=== PATIENT | female | born 1960 | race Hispanic/Latino ===

== ENCOUNTER 2022-08-10 14:11 | Emergency (ER) | payer OTHER, SELFPAY ==
[2022-08-10] MEDS ORDERED: LIDOCAINE 1% MPF 5 ML VIAL ONE (15:03)
[2022-08-10] MEDS ORDERED: TETANUS & DIPHTHERIA TOX,ADULT 0.5 ML VIAL ONE (15:09)
--- NOTE | 2022-08-10 15:51 | RAD REPORT ---
EXAM DESCRIPTION: RAD - Hand Right 3 View - 08/10/2022 3:34 pm CLINICAL HISTORY: Right hand pain status post injury FINDINGS: Comminuted oblique fracture mid aspect of the fourth distal phalanx with mild to moderate displacement of the fracture fragments No dislocation
[2022-08-10] MEDS ORDERED: cloNIDine HCL 0.1 MG TAB ONE (18:07)
--- NOTE | 2022-08-10 18:09 | EDPHYS ---
Physician Documentation [facility] Name: Gloria Fitzgerald Age: 62 yrs Sex: Female : 1960 Arrival Date: 08/10/2022 Time: 14:14 Bed 10 Private MD: ED Physician Jonas Clifford HPI: 08/10 16:41 This 62 yrs old Female presents to ER via Ambulatory with complaints of Crush kb Injury - finger. 16:41 The patient or guardian reports injury, a laceration. The complaints affect the palmar kb aspect of distal phalanx of right ring finger. Context: The problem was sustained outdoors, resulted from a crush injury, by a car door. Onset: The symptoms/episode began/occurred just prior to arrival. Modifying factors: The symptoms are alleviated by nothing, the symptoms are aggravated by movement. Associated signs and symptoms: The patient has no apparent associated signs or symptoms. Severity of symptoms: At their worst the symptoms were mild, in the emergency department the symptoms are unchanged. The patient has not experienced similar symptoms in the past. The patient has not recently seen a physician. Pt accidentally slammed car door on right ring finger causing laceration. Historical: - Allergies: 14:57 No Known Allergies; jl7 - Home Meds: 14:57 losartan 100 mg oral tab [Active]; jl7 - PMHx: 14:57 Hypertensive disorder; Diabetes mellitus; jl7 - Immunization history:: Client reports receiving the 2nd dose of the Covid vaccine. - Social history:: Smoking status: Patient denies any tobacco usage or history of. ROS: 16:40 Constitutional: Negative for fever, chills, and weight loss. kb 16:40 Skin: Positive for laceration(s), of the palmar aspect of distal phalanx of right ring finger. 16:40 All other systems are negative. Exam: 16:41 Constitutional: This is a well developed, well nourished patient who is awake, alert, kb and in no acute distress. Head/Face: Normocephalic, atraumatic. ENT: Moist Mucous membranes Cardiovascular: Regular rate and rhythm with a normal S1 and S2. No gallops, murmurs, or rubs. No pulse deficits. Respiratory: Respirations even and unlabored. No increased work of breathing. Talking in full sentences MS/ Extremity: Pulses equal, no cyanosis. Neurovascular intact. Full, normal range of motion. Neuro: Awake and alert, GCS 15, oriented to person, place, time, and situation. Moves all extremities. Normal gait. Psych: Awake, alert, with orientation to person, place and time. Behavior, mood, and affect are within normal limits. 16:41 Skin: injury, laceration(s), the wound is approximately 1.5 cm(s), of the palmar aspect of distal phalanx of right ring finger, that can be described as clean, no foreign body, irregular, without bleeding. Vital Signs: 14:53 BP 259 / 110; Pulse 94; Resp 17; Temp 99; Pulse Ox 100% on R/A; Weight 74.84 kg; Height jl7 5 ft. 2 in. (157.48 cm); Pain 2/10; 16:29 BP 253 / 112; Pulse 96; Resp 18; Pulse Ox 98% on R/A; ko1 17:30 BP 214 / 107; ko1 18:31 BP 202 / 108; Pulse 94; Pulse Ox 99% on R/A; ko1 14:53 Body Mass Index 30.18 (74.84 kg, 157.48 cm) jl7 Laceration: 18:06 Wound Repair of 1.5cm ( 0.6in ) subcutaneous laceration to palmar aspect of distal kb phalanx of right ring finger. Irregularly shaped.. Distal neuro/vascular/tendon intact. Anesthesia: Wound infiltrated with 2 mls of 1% lidocaine. Wound prep: Extensive cleansing with hibiclenz by me, Wound irrigation with saline by me. Skin closed with 4 5-0 Prolene using 2 cruciate knots, 2 simple sutures. Patient tolerated well. MDM: 14:54 Patient medically screened. kb 16:40 Data reviewed: vital signs, nurses notes. Data interpreted: Pulse oximetry: on room air kb is 98 %. Interpretation: normal. ED course: Awaiting callback from Dr Cazares for consult. 18:05 Physician consultation: Sj Cazares MD was contacted at 16:56, regarding consult, kb patient's condition, and will see patient in office, tomorrow, Wants laceration repaired and pt to follow up in [facility] tomorrow. 18:07 Counseling: I had a detailed discussion with the patient and/or guardian regarding: the kb historical points, exam findings, and any diagnostic results supporting the discharge/admit diagnosis, radiology results, the need for outpatient follow up, a hand specialist, to return to the emergency department if symptoms worsen or persist or if there are any questions or concerns that arise at home. 18:07 ED course: Pt asymptomatic of BP. States "It is always this high and I'm fine." Pt kb educated to keep bp log and follow up with PCP for HTN management. 08/10 14:56 Order name: Hand Right 3 View XRAY; Complete Time: 16:04 kb 08/10 14:54 Order name: Dressing - Wound; Complete Time: 17:58 kb 08/10 14:54 Order name: Gloves, Sterile; Complete Time: 15:06 kb 08/10 14:54 Order name: Prolene, Sutures; Complete Time: 15:06 kb 08/10 14:54 Order name: Setup Suture Tray; Complete Time: 15:06 kb 08/10 18:12 Order name: Finger Splint; Complete Time: 18:18 kb Administered Medications: 15:14 Drug: Tetanus-Diphtheria Toxoid Adult 0.5 ml {Admissions Nurse: [employer]. Exp: ko1 02/07/2024. Lot #: [id number]. } Route: IM; Site: left deltoid; 17:58 Drug: Lidocaine (1 %) 1 vials Volume: 5 ml; Route: Infiltration; ko1 18:04 Drug: cloNIDine 0.1 mg Route: PO; ko1 18:19 Drug: KeFLEX (cephalexin) 500 mg Route: PO; ko1 Disposition: 08/11 10:50 Co-signature as Attending Physician, Jonas Clifford MD I agree with the assessment and kdr plan of care. Disposition Summary: 08/10/22 18:09 Discharge Ordered Location: Home kb Condition: Stable kb Diagnosis - Displaced fracture of distal phalanx of right ring finger - open(08/10/22 18:09) kb - Laceration without foreign body of right ring finger without damage to nail kb Followup: kb - With: Emergency Department - When: As needed - Reason: Worsening of condition Followup: kb - With: Private Physician - When: 2 - 3 days - Reason: Recheck today's complaints, Continuance of care, Re-evaluation by your physician Discharge Instructions: - Discharge Summary Sheet kb - Laceration Care, Adult, [id number] kb Forms: - Medication Reconciliation Form kb - Thank You Letter kb - Antibiotic Education kb - Prescription Opioid Use kb Prescriptions: - Cephalexin 500 mg Oral Capsule - take 1 capsule by ORAL route every 8 hours for 10 days; 30 capsule; Refills: 0, kb Product Selection Permitted Signatures: Dispatcher [employer] EDMS Zena Lomeli, HARSHIL ORLANDO-Jonas Bond MD MD kdr Leal, Jahala, RN RN jl7 Crsytal Xiao RN RN ko1 Corrections: (The following items were deleted from the chart) 08/10 18:09 18:09 Displaced fracture of distal phalanx of right ring finger kb kb
--- NOTE | 2022-08-10 18:09 | ER ---
Nurse's Notes [facility] Name: Gloria Fitzgerald Age: 62 yrs Sex: Female : 1960 Arrival Date: 08/10/2022 Time: 14:14 Bed 10 Private MD: Diagnosis: Displaced fracture of distal phalanx of right ring finger-open;Laceration without foreign body of right ring finger without damage to nail Presentation: 08/10 14:53 Chief complaint: Patient states: Slammed right ring finger in door, laceration noted. jl7 Coronavirus screen: At this time, the client does not indicate any symptoms associated with coronavirus-19. Ebola Screen: No symptoms or risks identified at this time. Initial Sepsis Screen: Does the patient meet any 2 criteria? No. Patient's initial sepsis screen is negative. Does the patient have a suspected source of infection? No. Patient's initial sepsis screen is negative. Risk Assessment: Do you want to hurt yourself or someone else? Patient reports no desire to harm self or others. Onset of symptoms was August 10, 2022. 14:53 Method Of Arrival: Ambulatory [facility] 14:53 Acuity: MARIA C 3 jl7 Triage Assessment: 14:57 General: Appears in no apparent distress. uncomfortable, Behavior is calm, cooperative, jl7 appropriate for age. Pain: Complains of pain in left hand. Historical: - Allergies: 14:57 No Known Allergies; jl7 - Home Meds: 14:57 losartan 100 mg oral tab [Active]; jl7 - PMHx: 14:57 Hypertensive disorder; Diabetes mellitus; jl7 - Immunization history:: Client reports receiving the 2nd dose of the Covid vaccine. - Social history:: Smoking status: Patient denies any tobacco usage or history of. Screenin:13 Abuse screen: Denies threats or abuse. Denies injuries from another. Nutritional ko1 screening: No deficits noted. Tuberculosis screening: No symptoms or risk factors identified. Fall Risk None identified. Assessment: 15:11 General: Appears in no apparent distress. comfortable, Behavior is calm, cooperative, ko1 appropriate for age. Pain: Complains of pain in right hand. Neuro: No deficits noted. Cardiovascular: No deficits noted. Respiratory: No deficits noted. GI: No deficits noted. : No deficits noted. EENT: No deficits noted. Derm: No deficits noted. Musculoskeletal: No deficits noted. 15:13 Injury Description: Crush injury sustained to right hand Laceration sustained to right ko1 hand is was sustained 30-60 minutes ago. a small amount of bleeding noted at this time. Vital Signs: 14:53 BP 259 / 110; Pulse 94; Resp 17; Temp 99; Pulse Ox 100% on R/A; Weight 74.84 kg; Height jl7 5 ft. 2 in. (157.48 cm); Pain 2/10; 16:29 BP 253 / 112; Pulse 96; Resp 18; Pulse Ox 98% on R/A; ko1 17:30 BP 214 / 107; ko1 18:31 BP 202 / 108; Pulse 94; Pulse Ox 99% on R/A; ko1 14:53 Body Mass Index 30.18 (74.84 kg, 157.48 cm) jl7 ED Course: 14:14 Patient arrived in ED. as 14:54 Zena Lomeli FNP-C [facility]. kb 14:54 Jonas Clifford MD is Attending Physician. kb 14:56 Triage completed. jl7 14:57 Arm band placed on right wrist. jl7 14:59 Crystal Xiao RN is Primary Nurse. ko1 15:13 Patient has correct armband on for positive identification. Bed in low position. Call ko1 light in reach. Side rails up X 1. NIBP on. 15:13 Patient did not have IV access during this emergency room visit. ko1 15:36 Hand Right 3 View XRAY In Process Unspecified. EDMS 17:30 Assist provider with laceration repair on palmar aspect of distal phalanx of right ring ko1 finger using sutures. Set up tray. Performed by Zena CHUA Dressed with Kerlix, Patient tolerated well. 17:30 splint to right ring finger. ko1 Administered Medications: 15:14 Drug: Tetanus-Diphtheria Toxoid Adult 0.5 ml {Shake Out Worker: [employer]. Exp: ko1 02/07/2024. Lot #: [id number]. } Route: IM; Site: left deltoid; 17:58 Drug: Lidocaine (1 %) 1 vials Volume: 5 ml; Route: Infiltration; ko1 18:04 Drug: cloNIDine 0.1 mg Route: PO; ko1 18:19 Drug: KeFLEX (cephalexin) 500 mg Route: PO; ko1 Medication: 15:13 Vaccine Information Statement (VIS) provided today. Questions and/or concerns ko1 addressed. VIS edition date: 2021. Outcome: 17:30 Discharged to home ambulatory. ko1 17:30 Condition: stable 17:30 Discharge instructions given to patient, Instructed on discharge instructions, follow up and referral plans. medication usage, wound care, Demonstrated understanding of instructions, follow-up care, medications, wound care, Prescriptions given X 1. 18:09 Discharge ordered by . kb 18:32 Patient left the ED. ko1 Signatures: Dispatcher [employer] EDMS Zena Lomeli, EXPERIMENTAL WELDER-C EXPERIMENTAL WELDER-Anna Patton Jahala, RN RN jl7 Crystal Xiao RN RN ko1
[2022-08-10] MEDS ORDERED: CEPHALEXIN 250 MG CAP ONE (18:20)
[2022-08-10 19:52] VITALS: TEMP 99
[2022-08-10 19:55] VITALS: BP 202/108; O2SAT 99
== END 2022-08-10 18:32 | disposition home or self-care (01) ==
LOC: ER 14:11
PROC: 0JQJ0ZZ Repair Right Hand Subcutaneous Tissue and Fascia, Open Approach (ICD-10-PCS; principal; 2022-08-10)
DX: S62.634B Displaced fracture of distal phalanx of right ring finger, initial encounter for open fracture (principal); Z23 Encounter for immunization
CPT/HCPCS: 73130; 90471; 90714; 99284; 12001; J2001

== ENCOUNTER 2023-12-11 14:10 | Observation (INO) | payer OTHER ==
[2023-12-11 15:14] LABS: Absolute Basophils 0.1 K/uL (0-0.5); Absolute Eosinophils 0.3 K/uL (0-0.5); Absolute Lymphocytes (CBC) 1.9 K/uL (0.7-4.9); Absolute Monocytes 0.5 K/uL (0.1-1.3); Absolute Neutrophil 6.2 K/uL (1.8-8.0); Basophils % 1.3 % (0-1.3); Eosinophils % 3.6 % (0-4.4); Hematocrit 33.8 % (36.0-45.0); Hemoglobin 11.3 g/dL (12.0-15.0); Lymphocytes % 20.8 % (15.3-44.8); MCH 29.3 pg (27.0-35.0); MCHC 33.5 g/dL (32.0-36.0); MCV 87.6 fL (80-100); MPV 8.7 fL (7.6-11.3); Monocytes % 5.7 % (3.3-12.3); Neutrophils % 68.6 % (41.7-73.7); Platelets 292 thou/uL (152-406); RBC Red Blood Cell Count 3.85 M/uL (3.86-4.86); Red Cell Distribution Width 14.3 % (12.1-15.2)
[2023-12-11 15:15] LABS: PT Prothrombin Time 12.1 SECONDS (9.5-12.5); Protime INR 1.1
--- NOTE | 2023-12-11 15:22 | RAD REPORT ---
EXAM DESCRIPTION: RAD - Chest Single View - 12/11/2023 3:14 pm CLINICAL HISTORY: Cough;Dyspnea COMPARISON: <Comparisons> FINDINGS: Lines: None. Lungs: Mild prominence of the central pulmonary interstitium. Pleural: Blunted left costophrenic angle. Cardiac: Cardiomegaly. Mediastinum: Within normal limits. Bones: No acute fractures. Other: None IMPRESSION: Question mild pulmonary edema. No consolidative airspace disease. Cardiomegaly.
[2023-12-11 15:31] LABS: ALT/SGPT 64 U/L (13-56); AST/SGOT 31 U/L (15-37); Albumin 2.5 g/dL (3.4-5.0); Albumin/Globulin Ratio 0.6 (1.1-1.8); Alkaline Phosphatase 139 U/L (45-117); Anion Gap 9.6 mEq/L (5.0-15.0); BUN Blood Urea Nitrogen 24 mg/dL (7-18); Bicarbonate 23 mEq/L (21-32); Bilirubin Total 0.2 mg/dL (0.2-1.0); Globulin 4.5 g/dL (2.3-3.5); Glomerular Filtration Rate 40 ml/min (=/>90); Glucose Level 177 mg/dL (74-106); Magnesium 1.8 mg/dL (1.6-2.4); NT PRO-BNP 9995 pg/mL (<125); Potassium 4.6 mEq/L (3.5-5.1); Sodium Level 140 mEq/L (136-145); Troponin High Sensitivity 29.6 pg/mL (<58.9)
[2023-12-11 15:32] LABS: Bilirubin Direct < 0.1 mg/dL (0-0.2); Bilirubin Indirect, Calculated ND mg/dL (0.2-0.8)
[2023-12-11] MEDS ORDERED: ENOXAPARIN 80 MG/0.8 ML SQ ONE (15:46)
[2023-12-11] MEDS ORDERED: NITROGLYCERIN 1 GM PKT TD ONE (15:46)
[2023-12-11] MEDS ORDERED: ASPIRIN 81 MG CHEWABLE TABLET ONE (15:46)
[2023-12-11] MEDS ORDERED: METOPROLOL XL 50 MG TAB PO ONE (15:46)
[2023-12-11] MEDS ORDERED: FUROSEMIDE 40 MG/4 ML VIAL ONE (15:47)
[2023-12-11 16:20] LABS: Specific Gravity 1.012 (1.005-1.030); Sqamous Epithelial <5 /HPF (None Seen); Urine Bacteria <20 /HPF (<20); Urine Bilirubin NEGATIVE (Negative); Urine Blood 1+ (Negative); Urine Clarity Extremely Turbid (Clear); Urine Color Light-Yellow (Yellow); Urine Culture Reflex Order REFLEXED; Urine Glucose 2+ (Negative); Urine Ketones NEGATIVE (Negative); Urine Microscopic Reflex YN ORDER UMIC; Urine Nitrite NEGATIVE (Negative); Urine Protein 3+ (Negative); Urine RBC <5 /HPF (None Seen); Urine Urobilinogen Normal (Normal); Urine WBC 20-50 /HPF (<5); Urine WBC Clump Rare /HPF (None Seen); Urine Yeast (Budding) Trace /HPF (None Seen); Urine pH 6.5 (5.0-7.0)
[2023-12-11] MEDS ORDERED: HYDRALAZINE HCL 10 MG TABLET ONE (16:23)
--- NOTE | 2023-12-11 16:38 | RAD REPORT ---
EXAM DESCRIPTION: US - Renal Ultrasound-Complete - 12/11/2023 4:30 pm CLINICAL HISTORY: PAIN COMPARISON: No comparisons FINDINGS: Both kidneys are normal in size, shape and echotexture. The right kidney measures 12.2 cm. No hydronephrosis, focal mass or perinephric fluid. The left kidney measures 11.5 cm. No hydronephrosis. 8 mm cyst the lower pole of the left kidney. The urinary bladder is incompletely distended without gross abnormality seen. IMPRESSION: No evidence of hydronephrosis. Subcentimeter left lower pole renal cyst.
--- NOTE | 2023-12-11 16:51 | EDPHYS ---
Physician Documentation [facility] Name: Gloria Fitzgerald Age: 63 yrs Sex: Female : 1960 Arrival Date: 12/11/2023 Time: 14:10 Bed 18 Private MD: ED Physician Isaac Hernandez HPI: 12/10 16:40 This 63 yrs old Female presents to ER via Ambulatory with complaints of Leg vielka Swelling, Cough, Shortness Of Breath. 16:40 The patient or guardian reports airway noise, difficulty breathing. Onset: The vielka symptoms/episode began/occurred 60 day(s) ago. Severity of symptoms: At their worst the symptoms were mild, moderate, in the emergency department the symptoms are unchanged. Modifying factors: The symptoms are alleviated by rest the symptoms are aggravated by exertion. Associated signs and symptoms: Pertinent positives: chest pain, with movement. The patient has experienced similar episodes in the past, multiple times. Historical: - Allergies: 14:52 No Known Allergies; nj1 - PMHx: 14:52 diabetes mellitus; Hypertensive disorder; nj1 - Immunization history:: Client reports having NOT received the Covid vaccine. - Infectious Disease History:: Denies. - Social history:: Smoking status: Patient denies any tobacco usage or history of. ROS: 16:42 Constitutional: Negative for fever, chills, and weight loss, Eyes: Negative for injury, vielka pain, redness, and discharge, ENT: Negative for injury, pain, and discharge, Neck: Negative for injury, pain, and swelling, Abdomen/GI: Negative for abdominal pain, nausea, vomiting, diarrhea, and constipation, Back: Negative for injury and pain, : Negative for injury, bleeding, discharge, and swelling, Skin: Negative for injury, rash, and discoloration, Neuro: Negative for headache, weakness, numbness, tingling, and seizure, Psych: Negative for depression, anxiety, suicide ideation, homicidal ideation, and hallucinations, Allergy/Immunology: Negative for hives, rash, and allergies, Endocrine: Negative for neck swelling, polydipsia, polyuria, polyphagia, and marked weight changes, Hematologic/Lymphatic: Negative for swollen nodes, abnormal bleeding, and unusual bruising, 16:42 Cardiovascular: Positive for chest pain, 16:42 Respiratory: Positive for dyspnea on exertion, orthopnea, shortness of breath, 16:42 MS/extremity: Positive for swelling, of the right leg and left leg, Exam: 16:42 Constitutional: This is a well developed, well nourished patient who is awake, alert, vielka and in no acute distress. Head/Face: Normocephalic, atraumatic. Eyes: Pupils equal round and reactive to light, extra-ocular motions intact. Lids and lashes normal. Conjunctiva and sclera are non-icteric and not injected. Cornea within normal limits. Periorbital areas with no swelling, redness, or edema. ENT: Nares patent. No nasal discharge, no septal abnormalities noted. Tympanic membranes are normal and external auditory canals are clear. Oropharynx with no redness, swelling, or masses, exudates, or evidence of obstruction, uvula midline. Mucous membranes moist. Neck: Trachea midline, no thyromegaly or masses palpated, and no cervical lymphadenopathy. Supple, full range of motion without nuchal rigidity, or vertebral point tenderness. No Meningismus. Chest/axilla: Normal chest wall appearance and motion. Nontender with no deformity. No lesions are appreciated. Cardiovascular: Regular rate and rhythm with a normal S1 and S2. No gallops, murmurs, or rubs. Normal PMI, no JVD. No pulse deficits. Abdomen/GI: Soft, non-tender, with normal bowel sounds. No distension or tympany. No guarding or rebound. No evidence of tenderness throughout. Back: No spinal tenderness. No costovertebral tenderness. Full range of motion. Female : Normal external genitalia. Skin: Warm, dry with normal turgor. Normal color with no rashes, no lesions, and no evidence of cellulitis. MS/ Extremity: Pulses equal, no cyanosis. Neurovascular intact. Full, normal range of motion. Neuro: Awake and alert, GCS 15, oriented to person, place, time, and situation. Cranial nerves II-XII grossly intact. Motor strength 5/5 in all extremities. Sensory grossly intact. Cerebellar exam normal. Normal gait. Psych: Awake, alert, with orientation to person, place and time. Behavior, mood, and affect are within normal limits. 16:42 ECG was reviewed by the Attending Physician. Vital Signs: 14:36 BP 244 / 117; Pulse 96; Resp 18; Pulse Ox 98% on R/A; ab3 14:40 BP 249 / 117; Pulse 97; Resp 18; Temp 97.7(TE); Pulse Ox 98% on R/A; Weight 70.76 kg; nj1 Height 5 ft. 2 in. ; Pain 2/10; 14:45 BP 240 / 113; Pulse 81; Resp 18; Pulse Ox 98% on R/A; ab3 15:00 BP 249 / 120; Pulse 80; Resp 18; Pulse Ox 99% on R/A; ab3 15:15 BP 236 / 108; Pulse 89; Resp 17; Pulse Ox 98% on R/A; Pain 0/10; ab3 15:30 BP 232 / 101; Pulse 87; Resp 16; Pulse Ox 97% on R/A; ab3 16:00 BP 238 / 102; Pulse 90; Resp 16; Pulse Ox 99% on R/A; ab3 16:24 BP 216 / 102; Pulse 89; Resp 18; Pulse Ox 98% on R/A; ab3 17:00 BP 200 / 91; Pulse 69; Resp 16; Pulse Ox 99% on R/A; Pain 0/10; ab3 18:00 BP 199 / 97; Pulse 81; Resp 14; Temp 98; Pulse Ox 100% on R/A; ab3 18:00 Pain 0/10; ab3 18:50 BP 197 / 94; Pulse 84; Resp 16; Pulse Ox 99% on R/A; Pain 0/10; ab3 19:42 BP 198 / 95; Pulse 88; Resp 18; Pulse Ox 99% on R/A; Pain 0/10; tm6 14:40 Body Mass Index 28.53 (70.76 kg, 157.48 cm) nj1 14:40 Pain Scale: Adult nj1 15:15 Pain Scale: Adult ab3 17:00 Pain Scale: Adult ab3 18:00 Pain Scale: Adult ab3 18:50 Pain Scale: Adult ab3 19:42 Pain Scale: Adult tm6 14:45 Dr. David vargasftified of BPS ab3 15:15 MD David aware; pending lab results/imaging. ab3 16:24 aware; Hydralazine PO given with this BP ab3 Kathleen Coma Score: 18:00 Eye Response: spontaneous(4). Motor Response: obeys commands(6). Verbal Response: ab3 oriented(5). Total: 15. MDM: 14:41 Patient medically screened. vielka 16:43 Differential diagnosis: abnormal EKG, acute pericarditis, coronary artery disease vielka congestive heart failure Cholelithiasis gastritis, pleurisy, pneumonia, pulmonary embolus, unstable angina. HEART Score: History: Moderately Suspicious (1), ECG: Normal (0), Age: > 45 and < 65 years (1), Risk Factors: > or = 3 Risk factors for atherosclerotic disease (2), [Hypercholesterolemia] [Hypertension] [DM] [+ Family HX] [Obesity] Troponin: < or = 1 x Normal Limit (0). The patient was given aspirin in the Emergency Department. Differential Diagnosis: Obstructed Airway Bronchitis Influenza Upper Respiratory Infection Pharyngitis Otitis Media Allergic Rhinitis Viral Syndrome Pneumonia Tracheal Injury. KAYE Risk Score: 1 - Three or more CAD risk factors, [Family Hx], [HTN], [Elevated Cholesterol], [DM]. Data reviewed: vital signs, nurses notes, lab test result(s), EKG, radiologic studies, plain films, ultrasound. Consideration of Admission/Observation Patient was admitted/placed on observation. Escalation of care including admission/observation considered. I considered the following discharge prescriptions or medication management in the emergency department Medications were administered in the Emergency Department. See MAR. Independent interpretation of the following test(s) in the Emergency Department EKG: See my EKG interpretation above. Test considered but Not performed: Ultrasound no 2 d echo. Historians other than the Patient: Family Member: son well informed. Care significantly affected by the following chronic conditions: Diabetes, Hypertension. Counseling: I had a detailed discussion with the patient and/or guardian regarding the historical points, exam findings, and any diagnostic results supporting the discharge/admit diagnosis, the presence of at least one elevated blood pressure reading (>120/80) during this emergency department visit, radiology results, the need for further work-up and treatment in the hospital. 12/10 14:42 Order name: Basic Metabolic Panel; Complete Time: 15:34 vielka 12/10 14:42 Order name: CBC with Diff; Complete Time: 15:34 [facility] 12/10 14:42 Order name: LFT's; Complete Time: 15:34 [facility] 12/10 14:42 Order name: Magnesium; Complete Time: 15:34 [facility] 12/10 14:42 Order name: NT PRO-BNP; Complete Time: 15:34 [facility] 12/10 14:42 Order name: PT-INR; Complete Time: 15:34 [facility] 12/10 14:42 Order name: Troponin HS; Complete Time: 15:34 [facility] 12/10 14:42 Order name: Urinalysis w/ reflexes; Complete Time: 16:35 [facility] 12/10 16:27 Order name: Urine Culture EDMS 12/10 18:03 Order name: Basic Metabolic Panel EDMS 12/10 18:04 Order name: Basic Metabolic Panel EDMS 12/10 18:04 Order name: CBC with Automated Diff EDMS 12/10 18:04 Order name: CBC with Automated Diff EDMS 12/10 18:04 Order name: Lipid Profile EDMS 12/10 18:04 Order name: Lipid Profile EDMS 12/10 18:04 Order name: PTT, Activated Partial Thromb EDMS 12/10 18:04 Order name: PTT, Activated Partial Thromb EDMS 12/10 18:04 Order name: Troponin High Sensitivity EDMS 12/10 18:04 Order name: Troponin High Sensitivity EDMS 12/10 18:04 Order name: Troponin High Sensitivity EDMS 12/10 18:04 Order name: Troponin High Sensitivity EDMS 12/10 18:04 Order name: Troponin High Sensitivity EDMS 12/10 14:42 Order name: XRAY Chest (1 view); Complete Time: 15:34 [facility] 12/10 15:42 Order name: US Rp Exam Complete [facility] 12/10 18:03 Order name: Echo with Doppler EDMS 12/10 14:42 Order name: EKG; Complete Time: 14:43 [facility] 12/10 14:42 Order name: Cardiac monitoring; Complete Time: 15:10 [facility] 12/10 14:42 Order name: EKG - Nurse/Tech; Complete Time: 15:10 [facility] 12/10 14:42 Order name: IV Saline Lock; Complete Time: 15:10 [facility] 12/10 14:42 Order name: Labs collected and sent; Complete Time: 15:10 [facility] 12/10 14:42 Order name: O2 Per Protocol; Complete Time: 15:10 [facility] 12/10 14:42 Order name: O2 Sat Monitoring; Complete Time: 15:10 [facility] EC:42 Rate is 90 beats/min. Rhythm is regular. QRS [place] is Normal. LA interval is normal. QRS vielka interval is normal. QT interval is normal. No Q waves. T waves are Normal. No ST changes noted. Clinical impression: Normal ECG, NSR w/ Non-specific ST/T Changes, and No evidence of ischemia. Interpreted by me. Reviewed by me. Administered Medications: 15:52 Drug: Nitroglycerin Transdermal Ointment 2 % 1 inches Transdermal once Route: ab3 Transdermal; Site: anterior chest wall; 18:31 Follow up: Response: No adverse reaction; Pain is decreased; Other; Other: no pain; ab3 chest pressure resolved 15:52 Drug: Metoprolol PO 50 mg PO once Route: PO; ab3 18:31 Follow up: Response: No adverse reaction ab3 15:54 Drug: Aspirin PO 162 mg PO once Route: PO; ab3 18:30 Follow up: Response: No adverse reaction; Pain is decreased; Other; no pain; chest ab3 pressure resolved 15:57 Drug: Furosemide IVP 40 mg IVP once; give over 2 minutes Route: IVP; Site: right ab3 antecubital; 16:00 Drug: Enoxaparin Sub-Q 1 mg/kg Sub-Q once Route: Sub-Q; Site: right lower abdomen; ab3 18:28 Follow up: Response: No adverse reaction ab3 16:26 Drug: hydrALAZINE PO 10 mg PO once Route: PO; ab3 18:29 Follow up: Response: No adverse reaction; Blood pressure is lowered; mild; followe up ab3 with 10mg IVP per orders 18:25 Drug: Rocephin IV 1 grams IV at per protocol once; Given slow IV push per pharmacy ab3 instructions Route: IV; Rate: per protocol; Site: right antecubital; 18:34 Follow up: Response: No adverse reaction; IV Status: Completed infusion; IV Intake: [id number] 18:25 Drug: hydrALAZINE IVP 10 mg IVP once Route: IVP; Site: right antecubital; ab3 19:41 Not Given (Patient Refused): morphineor iv 2 mg IVP once over 4 mins tm6 19:42 Not Given (Patient Refused): ondansetron 4 mg IVP once; over 2 minutes tm6 Disposition Summary: 12/11/23 16:50 Hospitalization Ordered Notes: Hospitalization Status: Observation vielka Provider: Mireya Ross cha [facility] vielka Condition: Fair vielka Problem: new vielka Symptoms: have improved vielka Bed/Room Type: Standard vielka Room Assignment: 404(12/11/23 19:13) rv1 Diagnosis - Essential (primary) hypertension vielka - Chest pain, unspecified vielka - Chronic combined systolic (congestive) and diastolic (congestive) heart failure vielka - Type 2 diabetes mellitus with hyperglycemia vielka Forms: - Medication Reconciliation Form vielka - SBAR form vielka - Leadership Thank You Letter vielka Signatures: Dispatcher [employer] EDMS Isaac Hernandez MD MD cha Villegas, Rebecca rv1 Adrienne Noland, RN RN nj1 Rossy Castillo, RN RN ab3 Lisbet Montaño RN tm6 Corrections: (The following items were deleted from the chart) 14:43 14:43 BASIC METABOLIC PANEL+C.LAB.BRZ ordered. EDMS EDMS 14:43 14:43 CBC+H.LAB.BRZ ordered. EDMS EDMS 14:43 14:43 HEPATIC FUNCTION+C.LAB.BRZ ordered. EDMS EDMS 14:43 14:43 MAGNESIUM+C.LAB.BRZ ordered. EDMS EDMS 14:43 14:43 PROBNP+C.LAB.BRZ ordered. EDMS EDMS 14:43 14:43 PROTIME (+INR)+COAG.LAB.BRZ ordered. EDMS EDMS 14:43 14:43 Troponin High Sensitivity+C.LAB.BRZ ordered. EDMS EDMS 14:43 14:43 Urinalysis+U.LAB.BRZ ordered. EDMS EDMS 15:42 15:42 Rp Exam Complete+US.RAD.BRZ ordered. EDMS EDMS 18:16 16:50 vielka rv1 19:12 18:16 202 rv1 rv1 19:13 19:12 rv1 rv1
--- NOTE | 2023-12-11 16:51 | ER ---
Nurse's Notes [facility] Name: Gloria Fitzgerald Age: 63 yrs Sex: Female : 1960 Arrival Date: 12/11/2023 Time: 14:10 Bed 18 Private MD: Diagnosis: Essential (primary) hypertension;Chest pain, unspecified;Chronic combined systolic (congestive) and diastolic (congestive) heart failure;Type 2 diabetes mellitus with hyperglycemia Presentation: 12/10 14:40 Chief complaint: Patient states: Chest pains and shortness of breath on exertion for 2 nj1 months. 14:40 Coronavirus screen: Vaccine status: Patient reports being unvaccinated. Ebola Screen: nj1 Patient denies travel to an Ebola-affected area in the 21 days before illness onset. Initial Sepsis Screen: Does the patient meet any 2 criteria? HR > 90 bpm. No. Patient's initial sepsis screen is negative. Does the patient have a suspected source of infection? No. Patient's initial sepsis screen is negative. Risk Assessment: Do you want to hurt yourself or someone else? Patient reports no desire to harm self or others. Onset of symptoms was October 2023. 14:40 Method Of Arrival: Ambulatory [facility] 14:40 Acuity: MARIA C 3 nj1 Triage Assessment: 18:35 Respiratory: the patient reports symptoms have resolved. ab3 18:36 Pain: Denies pain. ab3 18:36 Respiratory:. Respiratory: No deficits noted. ab3 18:37 Respiratory: Onset: The symptoms/episode began/occurred pt with intermittent symptoms X ab3 2 months. Historical: - Allergies: 14:52 No Known Allergies; nj1 - PMHx: 14:52 diabetes mellitus; Hypertensive disorder; nj1 - Immunization history:: Client reports having NOT received the Covid vaccine. - Infectious Disease History:: Denies. - Social history:: Smoking status: Patient denies any tobacco usage or history of. Screenin:17 [facility] ED Fall Risk Assessment (Adult) History of falling in the last 3 months, ab3 including since admission No falls in past 3 months (0 pts) Confusion or Disorientation No (0 pts) Intoxicated or Sedated No (0 pts) Impaired Gait No (0 pts) Mobility Assist Device Used Yes (1 pt) Altered Elimination No (0 pt) Score/Fall Risk Level 0 - 2 = Low Risk Oriented to surroundings, Maintained a safe environment, Educated pt \\T\\ family on fall prevention, incl call for assistance when getting out of bed, Assessed \\T\\ reinforced patient's understanding of fall precautions, Provided non-skid footwear, Used ambulatory aids as needed (educated on \\T\\ assisted with). 15:17 Abuse screen: Denies threats or abuse. Nutritional screening: No deficits noted. ab3 Tuberculosis screening: No symptoms or risk factors identified. Never had TB. Possible symptoms: None Risk factors: None Intervention for positive screen: . Assessment: 14:50 General: Appears in no apparent distress. Behavior is calm, cooperative, Smells of ab3 Reports. General:. General:. Neuro: No deficits noted. Cardiovascular: Reports Chest pain. Cardiovascular: Reports chest pain, shortness of breath, intermittent in nature X 2 weeks per patient. Currently pt denies pain, but report "chest pressure". Denies Heart tones S1 S2 Capillary refill < 3 seconds is brisk Patient's skin is warm and dry. Pulses are 1+ in right dorsalis pedis artery and left dorsalis pedis artery Rhythm is sinus rhythm Chest pain . Respiratory: Reports shortness of breath on exertion since 2 weeks Airway is patent Respiratory effort is even, unlabored, relaxed, Breath sounds are clear bilaterally. : Reports "some blood" in her urine this morning X1 episode. Denies burning with urination, cramping discharge, inability to void, incontinence, urinary frequency, urgency. Musculoskeletal: Swelling present in right leg and left leg Reports leg swelling X 2 weeks. 15:36 Reassessment: Patient appears in no apparent distress at this time. MD David ab3 discussed admission POC with pt and grandson; State understanding. Grandson "Jcarlos" states he has to go home, but is available by phone at [phone]. 19:45 Reassessment: Patient appears in no apparent distress at this time. Patient and/or tm6 family updated on plan of care and expected duration. Pain level reassessed. Patient is alert, oriented x 3, equal unlabored respirations, skin warm/dry/pink. Vital Signs: 14:36 BP 244 / 117; Pulse 96; Resp 18; Pulse Ox 98% on R/A; ab3 14:40 BP 249 / 117; Pulse 97; Resp 18; Temp 97.7(TE); Pulse Ox 98% on R/A; Weight 70.76 kg; nj1 Height 5 ft. 2 in. ; Pain 2/10; 14:45 BP 240 / 113; Pulse 81; Resp 18; Pulse Ox 98% on R/A; ab3 15:00 BP 249 / 120; Pulse 80; Resp 18; Pulse Ox 99% on R/A; ab3 15:15 BP 236 / 108; Pulse 89; Resp 17; Pulse Ox 98% on R/A; Pain 0/10; ab3 15:30 BP 232 / 101; Pulse 87; Resp 16; Pulse Ox 97% on R/A; ab3 16:00 BP 238 / 102; Pulse 90; Resp 16; Pulse Ox 99% on R/A; ab3 16:24 BP 216 / 102; Pulse 89; Resp 18; Pulse Ox 98% on R/A; ab3 17:00 BP 200 / 91; Pulse 69; Resp 16; Pulse Ox 99% on R/A; Pain 0/10; ab3 18:00 BP 199 / 97; Pulse 81; Resp 14; Temp 98; Pulse Ox 100% on R/A; ab3 18:00 Pain 0/10; ab3 18:50 BP 197 / 94; Pulse 84; Resp 16; Pulse Ox 99% on R/A; Pain 0/10; ab3 19:42 BP 198 / 95; Pulse 88; Resp 18; Pulse Ox 99% on R/A; Pain 0/10; tm6 14:40 Body Mass Index 28.53 (70.76 kg, 157.48 cm) nj1 14:40 Pain Scale: Adult nj1 15:15 Pain Scale: Adult ab3 17:00 Pain Scale: Adult ab3 18:00 Pain Scale: Adult ab3 18:50 Pain Scale: Adult ab3 19:42 Pain Scale: Adult tm6 14:45 Dr. Hernandez noftified of BPS ab3 15:15 MD David aware; pending lab results/imaging. ab3 16:24 aware; Hydralazine PO given with this BP ab3 Vitals: 15:00 Cardiac Rhythm Assessment Regular Sinus rhythm. ab3 18:00 Cardiac Rhythm Assessment Regular Sinus rhythm. ab3 Kathleen Coma Score: 18:00 Eye Response: spontaneous(4). Motor Response: obeys commands(6). Verbal Response: ab3 oriented(5). Total: 15. ED Course: 14:16 Patient arrived in ED. ra3 14:41 Isaac Hernandez MD is Attending Physician. vielka 14:50 Client placed on continuous cardiac and pulse oximetry monitoring. NIBP monitoring ab3 applied. slide machine tender on. Pulse ox on. NIBP on. 14:52 Triage completed. nj1 14:52 Arm band placed on. nj1 14:58 Virginia Bundy, RN is Primary Nurse. ph 15:00 Patient has correct armband on for positive identification. Allergy band placed. Fall ab3 risk band placed. Placed in gown. Bed in low position. Call light in reach. Side rails up X 1. Provided Education on: ER process/ room orientation. 15:12 Missed attempt(s): 22 gauge in left antecubital area. Bleeding controlled, band aid jg11 applied, catheter tip intact. 15:12 Missed attempt(s): 22 gauge in right forearm. Bleeding controlled, band aid applied, jg11 catheter tip intact. 15:13 Initial lab(s) drawn, by me, sent to lab. EKG done, by ED staff. Inserted saline lock: jg11 22 gauge in right antecubital area, using aseptic technique. Blood collected. 15:16 XRAY Chest (1 view) In Process Unspecified. EDMS 15:28 ED physician to see patient. ab3 15:36 No apparent distress. Awaiting lab results, Awaiting radiology results. Awaiting ab3 disposition. 15:51 Urinalysis w/ reflexes Sent. ab3 16:32 US Rp Exam Complete In Process Unspecified. EDMS 16:49 Mireya Ross MD is Hospitalizing Provider. vielka 17:27 No apparent distress. Awaiting bed assignment. ab3 18:36 Patient admitted, IV remains in place. ab3 18:37 No provider procedures requiring assistance completed. ab3 Administered Medications: 15:52 Drug: Nitroglycerin Transdermal Ointment 2 % 1 inches Transdermal once Route: ab3 Transdermal; Site: anterior chest wall; 18:31 Follow up: Response: No adverse reaction; Pain is decreased; Other; Other: no pain; ab3 chest pressure resolved 15:52 Drug: Metoprolol PO 50 mg PO once Route: PO; ab3 18:31 Follow up: Response: No adverse reaction ab3 15:54 Drug: Aspirin PO 162 mg PO once Route: PO; ab3 18:30 Follow up: Response: No adverse reaction; Pain is decreased; Other; no pain; chest ab3 pressure resolved 15:57 Drug: Furosemide IVP 40 mg IVP once; give over 2 minutes Route: IVP; Site: right ab3 antecubital; 16:00 Drug: Enoxaparin Sub-Q 1 mg/kg Sub-Q once Route: Sub-Q; Site: right lower abdomen; ab3 18:28 Follow up: Response: No adverse reaction ab3 16:26 Drug: hydrALAZINE PO 10 mg PO once Route: PO; ab3 18:29 Follow up: Response: No adverse reaction; Blood pressure is lowered; mild; followe up ab3 with 10mg IVP per orders 18:25 Drug: Rocephin IV 1 grams IV at per protocol once; Given slow IV push per pharmacy ab3 instructions Route: IV; Rate: per protocol; Site: right antecubital; 18:34 Follow up: Response: No adverse reaction; IV Status: Completed infusion; IV Intake: [id number] 18:25 Drug: hydrALAZINE IVP 10 mg IVP once Route: IVP; Site: right antecubital; ab3 19:41 Not Given (Patient Refused): morphineor iv 2 mg IVP once over 4 mins tm6 19:42 Not Given (Patient Refused): ondansetron 4 mg IVP once; over 2 minutes tm6 Medication: 18:35 VIS not applicable for this client. ab3 Intake: 18:34 IV: 50ml; Total: 50ml. ab3 Outcome: 16:50 Decision to Hospitalize by Provider. vielka 18:36 Condition: improved ab3 19:50 Admitted to Med/surg accompanied by nurse, via wheelchair, room 404, with chart, tm6 19:50 Instructed on the need for admit, 19:50 Patient left the ED. tm6 Signatures: Dispatcher [employer] EDMS Isaac Hernandez MD MD cha Hall, Patricia, RN Adrienne Fagan ph, RN RN nj1 Lisbet Montaño RN RN tm6 Ludin Harman jg11 Melissa Nova 3 Rossy Castillo RN RN ab3
[2023-12-11] MEDS ORDERED: ALPRAZOLAM 0.25 MG TABLET PO PRN (17:58)
[2023-12-11] MEDS ORDERED: ACETAMINOPHEN 500 MG TAB PO PRN (17:58)
[2023-12-11] MEDS ORDERED: MORPHINE 4 MG/ML SYR IV PRN (17:58)
[2023-12-11] MEDS ORDERED: CEFTRIAXONE 1000 MG/VIAL ONE (18:21)
[2023-12-11] MEDS ORDERED: HYDRALAZINE HCL 20 MG/ML VIAL ONE (18:21)
[2023-12-11] MEDS ORDERED: NA CHLORIDE 0.9% 50 ML ONE (18:22)
[2023-12-11 19:16] LABS: Troponin High Sensitivity 23.2 pg/mL (<58.9)
[2023-12-11] MEDS: METOPROLOL TAR 25 MG TAB PO SCH (20:38)
[2023-12-11] MEDS: TICAGRELOR 90 MG TABLET PO SCH (20:38)
[2023-12-12 02:03] VITALS: O2SAT 99
[2023-12-12 02:40] VITALS: BP 198/95; TEMP 98
--- NOTE | 2023-12-12 06:33 | P.HP ---
Certification for Inpatient Patient admitted to: Observation With expected LOS: <2 Midnights Patient will require the following post-hospital care: None Practitioner: I am a practitioner with admitting privileges, knowledge of patient current condition, hospital course, and medical plan of care. Services: Services provided to patient in accordance with Admission requirements found in Title 42 Section 412.3 of the Code of Federal Regulations Patient History Date of Service: 12/11/23 Reason for admission: Chest pain rule out acute coronary syndrome History of Present Illness: Patient is a 63-year-old female who came into the hospital with chest pain. Patient chest pain was in the sternal region. Patient denies any radiation. Patient came into the hospital for further workup. In the ER patient EKG was unremarkable and troponins were negative. Patient has multiple risk factors. Patient will be observed overnight for chest pain rule out acute coronary syndrome. If troponins are negative and EKG is unremarkable she can follow-up as an outpatient. Patient also with some acute renal insufficiency. Will continue monitoring renal function. Allergies No Known Allergies Allergy (Verified 07/27/23 07:07) Home Medications: Amoxicillin/Potassium Clav [Amox-Clav 875-125 mg Tablet] 1 each PO DAILY 10/07/21 Gabapentin 300 mg PO BID 10/07/21 Pentoxifylline 400 mg PO DAILY 10/07/21 dilTIAZem HCL [Diltiazem ER] 240 mg PO DAILY 10/07/21 - Past Medical/Surgical History Diabetic: Yes -: HTN -: DMII -: CKD III -: section -: Cholecystectomy - Family History Father Family History: Reviewed- Non-Contributory - Social History Smoking Status: Former smoker Alcohol use: No CD- Drugs: No Review of Systems 10-point ROS is otherwise unremarkable Physical Examination - Vital Signs Temperature: 98 F Blood Pressure: 198/95 Pulse: 88 Respirations: 18 Pulse Ox (%): 99 - Physical Exam General: Alert, In no apparent distress, Oriented x3 HEENT: Atraumatic, PERRLA, Mucous membr. moist/pink, EOMI, Sclerae nonicteric Neck: Supple, 2+ carotid pulse no bruit, No LAD, Without JVD or thyroid abn ormality Respiratory: Clear to auscultation bilaterally, Normal air movement Cardiovascular: Regular rate/rhythm, Normal S1 S2, No murmurs Gastrointestinal: Normal bowel sounds, Soft and benign, Non-distended, No tenderness Musculoskeletal: No clubbing, No swelling, No tenderness Integumentary: No rashes Neurological: Normal gait, Normal speech, Normal strength at 5/5 x4 extr, Normal tone, Normal affect Lymphatics: No axilla or inguinal lymphadenopathy - Studies Laboratory Data (last 24 hrs) 12/11/23 12/11/23 12/11/23 15:03 15:03 15:03 WBC 9.00 Hgb 11.3 L Hct 33.8 L Plt Count 292 PT 12.1 INR 1.10 Sodium 140 Potassium 4.6 BUN 24 H Creatinine 1.46 H Glucose 177 H Magnesium 1.8 Total Bilirubin 0.2 AST 31 ALT 64 H Alkaline Phosphatase 139 H Assessment & Plan - Problems (Diagnosis) (1) Chest pain, rule out acute myocardial infarction Status: Acute (2) Hypertension Status: Acute (3) Chronic kidney disease, stage III (moderate) Status: Acute (4) Diabetes Status: Acute (5) Neuropathy Status: Acute (6) Peripheral vascular disease Status: Acute - Plan Plan: 1. Chest pain rule out acute coronary syndrome; serial troponins and EKG. Outpatient cardiac workup with EKG and troponins are negative. 2. History of diabetes; patient with type 2 diabetes. Strict blood sugar control. 3. History of hypertension; continue with antihypertensives 4. Chronic kidney disease stage III; monitor renal function closely 5. GI DVT prophylaxis Discharge Plan: Home Plan to discharge in: 24 Hours - Advance Directives Does patient have a Living Will: Yes Does patient have a Durable POA for Healthcare: Yes - Code Status/Comfort Care Code Status Assessed: Yes Code Status: Full Code Critical Care: No Time Spent Managing PTS Care (In Minutes): 40
--- NOTE | 2023-12-12 06:39 | P.DS ---
Discharge Date: 12/12/23 Disposition: AMA-LEFT AGAINST MEDICAL ADVIC Reason for Admission: Chest pain rule out acute coronary syndrome - Problems (1) Chest pain, rule out acute myocardial infarction Status: Acute (2) Hypertension Status: Acute (3) Chronic kidney disease, stage III (moderate) Status: Acute (4) Diabetes Status: Acute (5) Neuropathy Status: Acute (6) Peripheral vascular disease Status: Acute Brief History of Present Illness: Patient is a 63-year-old female who came into the hospital with chest pain. Patient chest pain was in the sternal region. Patient denies any radiation. Patient came into the hospital for further workup. In the ER patient EKG was unremarkable and troponins were negative. Patient has multiple risk factors. Patient will be observed overnight for chest pain rule out acute coronary syndrome. If troponins are negative and EKG is unremarkable she can follow-up as an outpatient. Patient also with some acute renal insufficiency. Will continue monitoring renal function. Hospital Course: Patient decided to leave AGAINST MEDICAL ADVICE. Nurses notified slope runner prior to discharging patient AGAINST MEDICAL ADVICE. Vital Signs/Physical Exam: Temp Pulse Resp BP Pulse Ox 98 F 88 18 198/95 H 99 12/12/23 06:33 12/12/23 06:33 12/12/23 06:33 12/12/23 06:33 12/12/23 06:33 General: Alert, In no apparent distress, Oriented x3 Laboratory Data at Discharge: WBC Cancelled 12/12/23 05:00 Hgb Cancelled 12/12/23 05:00 Hct Cancelled 12/12/23 05:00 Plt Count Cancelled 12/12/23 05:00 PT 12.1 SECONDS (9.5-12.5) 12/11/23 15:03 INR 1.10 12/11/23 15:03 APTT Cancelled 12/12/23 05:00 Sodium Cancelled 12/12/23 05:00 Potassium Cancelled 12/12/23 05:00 BUN Cancelled 12/12/23 05:00 Creatinine Cancelled 12/12/23 05:00 Glucose Cancelled 12/12/23 05:00 Magnesium 1.8 mg/dL (1.6-2.4) 12/11/23 15:03 Total Bilirubin 0.2 mg/dL (0.2-1.0) 12/11/23 15:03 AST 31 U/L (15-37) 12/11/23 15:03 ALT 64 U/L (13-56) H 12/11/23 15:03 Alkaline Phosphatase 139 U/L (45-117) H 12/11/23 15:03 Triglycerides 105 mg/dL (<150) 12/11/23 18:43 Cholesterol 176 mg/dL (<200) 12/11/23 18:43 HDL Cholesterol 57 mg/dL (40-60) 12/11/23 18:43 Cholesterol/HDL Ratio 3.09 12/11/23 18:43 Home Medications: Amoxicillin/Potassium Clav [Amox-Clav 875-125 mg Tablet] 1 each PO DAILY 10/07/21 Gabapentin 300 mg PO BID 10/07/21 Pentoxifylline 400 mg PO DAILY 10/07/21 dilTIAZem HCL [Diltiazem ER] 240 mg PO DAILY 10/07/21 Physician Discharge Instructions: Patient left AGAINST MEDICAL ADVICE Diet: ADA Activity: Fall precautions Followup: NONE,NONE [Primary Care Provider] - Time spent managing pt's care (in minutes): 5
[2023-12-12] MEDS ORDERED: ENOXAPARIN 40 MG/0.4 ML SQ SCH (09:00)
[2023-12-12] MEDS ORDERED: ASPIRIN EC 81 MG TAB PO SCH (09:00)
--- NOTE | 2023-12-13 12:46 | EKG ---
Test Date: 2023-12-11 Test Time: 14:50:17 [employer] Machine Tender: BRITNEY MEASUREMENT RESULTS: Intervals: Rate: 90 ID: [id number] QRSD: 76 QT: 372 QTc: 455 [place]: P: 67 ID: [id number] QRS: 8 T: 78 INTERPRETIVE STATEMENTS: Normal sinus rhythm Normal ECG No previous ECG available for comparison Electronically Signed On 12-13-23 12:41:33 CDT by Emiliano Harvey
== END 2023-12-12 00:25 | disposition left against medical advice (07) ==
LOC: ER 14:10 → ERHOLD 17:58 → 4TH 19:46
PROVIDERS: ADMIT Hospitalist; ATTEND Hospitalist
DX: R07.9 Chest pain, unspecified (principal); I12.9 Hypertensive chronic kidney disease with stage 1 through stage 4 chronic kidney disease, or unspecified chronic kidney disease; E11.22 Type 2 diabetes mellitus with diabetic chronic kidney disease; E11.40 Type 2 diabetes mellitus with diabetic neuropathy, unspecified; N18.30 Chronic kidney disease, stage 3 unspecified; I73.9 Peripheral vascular disease, unspecified; Z53.29 Procedure and treatment not carried out because of patient's decision for other reasons
CPT/HCPCS: 87088; 85025; 81001; 87086; 80048; 36415; 83735; 85610; 80061; 80076; 84484 ×2; 83880; 71045; 76770; J0360; J1940; J0696; 93005; 96372; 96374; 96375; 99285; G0378